=== PATIENT | male | born 1995 | race Caucasian/White ===

== ENCOUNTER 2022-03-14 09:47 | Emergency (ER) | payer MEDICAID ==
[~2022-03-14] VITALS: Ht 182.9 cm; Wt 80.0 kg
[2022-03-14] MEDS ORDERED: IBUPROFEN 600MG TABLET PO STA (11:28)
[2022-03-14] MEDS ORDERED: LIDOCAINE HCL 1% 20ML VIAL (Pyxis) INJ INFIL ONE (13:45)
[2022-03-14] MEDS ORDERED: PROPOFOL 200MG/20ML VIAL IV ONE (14:15)
[2022-03-14] MEDS ORDERED: FENTANYL CITRATE/PF 50MCG/ML 2ML VIAL IV ONE (14:15)
[2022-03-14] MEDS ORDERED: LIDOCAINE HCL 1% 10 MG/ML 10ML VIAL IJ NR (15:00)
[2022-03-14] MEDS: MORPHINE SULFATE 4 MG/ML CPJ (NOT FOR IM USE) IV ONE ×2 (15:39→15:59)
[2022-03-14] MEDS ORDERED: MORPHINE SULFATE 4 MG/ML CPJ (NOT FOR IM USE) IV ONE (16:00)
[2022-03-14] MEDS ORDERED: IBUP-2029 MT (16:03)
[2022-03-14 17:32] VITALS: BP 113/66
== END 2022-03-14 17:33 | disposition home or self-care (01) ==
LOC: ER 10:52
DX: S53.124A Posterior dislocation of right ulnohumeral joint, initial encounter (principal); W18.30XA Fall on same level, unspecified, initial encounter; Y93.89 Activity, other specified; Y92.89 Other specified places as the place of occurrence of the external cause; Y99.8 Other external cause status
CPT/HCPCS: 24600; 71045; 73070; 73090; 96374; 99152; 99285; J2270; J2704; J3010; J3490; A4565